=== PATIENT | male | born 1945 | race Caucasian/White ===

== ENCOUNTER → 2018-10-03 | Outpatient (CLI) | payer MEDICARE | END | disposition home or self-care (01) | LOC: RAH 12:24 | PROVIDERS: ATTEND Physical Medicine & Rehabilitation | DX: S33.140A Subluxation of L4/L5 lumbar vertebra, initial encounter (principal); M25.551 Pain in right hip; M25.552 Pain in left hip; X58.XXXA Exposure to other specified factors, initial encounter; Y93.89 Activity, other specified; Y92.89 Other specified places as the place of occurrence of the external cause; Y99.8 Other external cause status | CPT/HCPCS: 72114; 73521 ==

== ENCOUNTER → 2019-01-25 | Outpatient (CLI) | payer MEDICARE | END | disposition home or self-care (01) | LOC: SHCH 07:33 | PROVIDERS: ATTEND Internal Medicine Cardiovascular Disease | DX: R60.9 Edema, unspecified (principal); Z86.718 Personal history of other venous thrombosis and embolism | CPT/HCPCS: 93925 ==

== ENCOUNTER → 2019-01-31 | Outpatient (CLI) | payer MEDICARE | END | disposition home or self-care (01) | LOC: RAH 07:19 | PROVIDERS: ATTEND Physical Medicine & Rehabilitation | DX: M47.26 Other spondylosis with radiculopathy, lumbar region (principal); M51.36 Other intervertebral disc degeneration, lumbar region; N28.1 Cyst of kidney, acquired | CPT/HCPCS: 72148 ==

== ENCOUNTER 2019-04-02 13:00 | Observation (INO) | payer MEDICARE ==
[2019-03-30] MEDS: CEFAZOLIN SODIUM 1 GM VIAL IVP SCH (07:00)
[2019-03-30 09:44] LABS: BASOPHILS % (AUTO) 0.7 % (0.0-5.0); EOSINOPHILS % (AUTO) 1.4 % (0.0-8.0); HEMATOCRIT 45.1 % (42-54); LYMPHOCYTES % (AUTO) 19.3 % (21.0-51.0); MEAN CORPUSCULAR HEMOGLOBIN 32.9 pg (27.0-33.0); MEAN CORPUSCULAR HGB CONC 33.2 g/dL (32.0-36.0); MEAN CORPUSCULAR VOLUME 99.1 fL (79-99); MONOCYTES % (AUTO) 8.4 % (3.0-13.0); NEUTROPHILS % (AUTO) 70.2 % (40.0-77.0); PLATELET COUNT (AUTO) 221 K/uL (130-400); RED BLOOD CELL COUNT(AUTO) 4.55 MIL/uL (4.50-6.20); RED CELL DISTRIBUTION WIDTH 13.8 % (11.0-15.5); WHITE BLOOD COUNT (AUTO) 7.2 K/uL (4.8-10.8)
[2019-03-30 09:45] VITALS: BP 166/98
[2019-03-30 09:54] LABS: POTASSIUM 3.7 mmol/L (3.5-5.1)
[2019-03-31] MEDS: CEFAZOLIN SODIUM 1 GM VIAL IVP SCH (17:15)
[2019-04-01] MEDS: CEFAZOLIN SODIUM 1 GM VIAL IVP SCH (17:15)
[~2019-04-02] VITALS: Ht 185.4 cm; Wt 97.3 kg
[~2019-04-02 13:00] MED LIST: ATOR40TA71 PO; COLESTIPOL PO; HYDR12.530 PO; LISI40TA4 PO; OMEP40CA37 PO; POTASSIUM CITRATE PO; VITA1TAB39 PO
[2019-04-02] MEDS: CEFAZOLIN SODIUM 1 GM VIAL IVP SCH (17:15)
[2019-04-03] VITALS (25 sets, daily range): BP systolic 129–150; BP diastolic 72–113
[2019-04-03] MEDS ORDERED: LACTATED RINGERS 1000ML 1,000 ML IV ONE (06:52)
[2019-04-03] MEDS ORDERED: BUPIVACAINE/EPI/PF 0.25% 30ML VIAL IJ ONE (06:55)
[2019-04-03] MEDS ORDERED: DURAMORPH PF1 MG/ML 10ML AMP IV ONE (06:55)
[2019-04-03] MEDS ORDERED: THROMBIN-JMI 20000 UNIT KIT TP ONE (06:55)
[2019-04-03] MEDS ORDERED: BACITRACIN 50,000 UNIT VIAL ONE (06:55)
[2019-04-03] MEDS ORDERED: SUCCINYLCHOLINE 200MG/10ML SYR ONE ×2 (07:18→07:39)
[2019-04-03] MEDS ORDERED: PROPOFOL 10 MG/ML 20ML VIAL IV ONE (07:18)
[2019-04-03] MEDS ORDERED: LIDOCAINE PF 2% 5ML ABBOJECT ONE ×2 (07:18→07:39)
[2019-04-03] MEDS ORDERED: DEXAMETHASONE SOD PHOSPHATE 10MG/ML 1ML VIAL ONE (07:18)
[2019-04-03] MEDS ORDERED: GLYCOPYRROLATE 1 MG/5 ML SYRINGE ONE (07:18)
[2019-04-03] MEDS ORDERED: FENTANYL CITRATE PF 50 MCG/1 ML 2ML VIAL ONE ×2 (07:19→10:34)
[2019-04-03] MEDS ORDERED: MIDAZOLAM HCL 1 MG/ML 2ML VIAL ONE (07:19)
[2019-04-03] MEDS ORDERED: ROCURONIUM 10MG/1ML SYR 10 MG/ML ML ONE (07:19)
[2019-04-03] MEDS ORDERED: ONDANSETRON HCL 4 MG/2 ML VIAL ONE (07:19)
[2019-04-03] MEDS ORDERED: NEOSTIGMINE 5MG/5ML SYR IV ONE (07:19)
[2019-04-03] MEDS ORDERED: LIDOCAINE HCL 2% JELLY 5 ML ONE (07:38)
[2019-04-03] MEDS ORDERED: ARTIFICIAL TEARS 3.5 GM OINTMENT ONE (07:40)
[2019-04-03] MEDS: CEFAZOLIN SODIUM 1 GM VIAL IVP SCH (08:30)
[2019-04-03] MEDS ORDERED: EPHEDRINE SULFATE 50 MG/ML AMPULE ONE (10:05)
[2019-04-03] MEDS ORDERED: LIDOCAINE HCL 4% LTA SOL 4 ML VIAL ONE (10:47)
[2019-04-03] MEDS ORDERED: LACTATED RINGERS 1000ML 1,000 ML IV SCH (11:06)
[2019-04-03] MEDS ORDERED: MORPHINE SULFATE 2 MG/ML 1ML SYG IVP PRN (11:15)
[2019-04-03] MEDS ORDERED: SODIUM CHLORIDE 0.9% 10 ML VIAL IVP PRN (11:15)
[2019-04-03] MEDS: DEXAMETHASONE SOD PHOSPHATE 4 MG/ML 1ML VIAL IVP SCH ×3 (11:15→23:00)
[2019-04-03] MEDS ORDERED: PROMETHAZINE HCL 25 MG/ML 1ML AMPULE IM PRN (11:15)
[2019-04-03] MEDS ORDERED: CEFAZOLIN SODIUM 1 GM VIAL IVP SCH ×2 (11:15→16:30)
[2019-04-03] MEDS ORDERED: HYDROCODONE/ACETAMINOPHEN 5/325 MG TAB PO PRN (11:15)
[2019-04-03] MEDS ORDERED: MEPERIDINE-PF 25 MG/ML SYG ONE ×2 (11:47→11:59)
[2019-04-03] MEDS: ENOXAPARIN SODIUM 100 MG/1 ML SQ SCH (20:59)
[2019-04-03] MEDS ORDERED: ENOXAPARIN SODIUM 1 MG/KG SQ SCH (21:00)
[2019-04-03] MEDS ORDERED: ATORVASTATIN CALCIUM 40 MG TABLET PO SCH (21:00)
[2019-04-04 03:30] VITALS: BP 123/76
[2019-04-04] MEDS: DEXAMETHASONE SOD PHOSPHATE 4 MG/ML 1ML VIAL IVP SCH (04:46)
--- NOTE | 2019-04-04 05:00 | NUR ---
SINHA CATHETER/ DRESSING SINHA CATHETER REMOVED AT THIS TIME WITH TIP INTACT. PATIENT TOLERATED WELL. VAL DRAIN TO LEFT LOWER BACK ALSO REMOVED WITH TIP INTACT. DRESSING TO LOWER BACK REMOVED. INCISION WELL APPROXIMATED WITH WITH A TOTAL OF 28 ANSELMO INTACT TO TWO INCISIONS. AREA PAINTED WITH BETADINE, COVERED WITH GAUZE AND SECURED WITH HYPAFIX TAPE. PATIENT TOLERATED PROCEDURE WELL. PATIENT IS DUE TO VOID.
[2019-04-04] MEDS ORDERED: PANTOPRAZOLE SODIUM 40 MG TABLET.DR PO SCH (07:30)
[2019-04-04 07:55] VITALS: BP 122/82
[2019-04-04] MEDS: ENOXAPARIN SODIUM 100 MG/1 ML SQ SCH (09:00)
[2019-04-04] MEDS ORDERED: HYDROCHLOROTHIAZIDE 25 MG TABLET PO SCH (09:00)
[2019-04-04] MEDS ORDERED: POTASSIUM CITRATE 1080 MG PO SCH (09:00)
[2019-04-04] MEDS ORDERED: VITAMIN B COMPLEX 1 CAPSULE PO SCH (09:00)
[2019-04-04] MEDS ORDERED: LISINOPRIL 40 MG TABLET PO SCH (09:00)
--- NOTE | 2019-04-04 09:32 | NUR ---
discharge/post void dressing to lower back redressed due to coming up at lower back. incision is dry and intact. discharge teaching done with patient using teachback method, verbalized understanding. no noted sob or distress. iv removed, cath tip intact. incision care teaching done with patietn, verbalized understanding. pending ride fro transfer out of hospital.
--- NOTE | 2019-04-04 12:00 | NUR ---
CM NOTE PT IN OOP STATUS READY TO DC. NO TRIGGERS TO CM, NO CONCERNS VOICED, CM ASSESSMENT DEFERRED Addendum: 04/04/19 at 1756 by ROSALINO LOO RN CM Amended: Links added.
== END 2019-04-04 10:30 | disposition home or self-care (01) ==
LOC: EDSTATUS 13:00 → DAHIP 04-03 05:49 → 4AH 04-03 11:04
PROVIDERS: ADMIT Neurological Surgery; ATTEND Neurological Surgery
DX: M48.061 Spinal stenosis, lumbar region without neurogenic claudication (principal); D17.9 Benign lipomatous neoplasm, unspecified; I82.512 Chronic embolism and thrombosis of left femoral vein; I10 Essential (primary) hypertension; E78.5 Hyperlipidemia, unspecified; Z87.442 Personal history of urinary calculi; Z79.899 Other long term (current) drug therapy
CPT/HCPCS: 21931; 36415; 63047; 63048; 72020; 80048; 85025; 88304; 96372; 96374; 96375; 96376 ×2; A4344; A4510; A4600; A4649 ×4; G0378 ×20; J0330 ×2; J0690 ×2; J1100 ×4; J1650; J2001 ×2; J2175 ×2; J2250; J2274; J2405; J2550; J2704; J2710; J3010 ×2; J3490 ×3; J7030; J7120 ×3

== ENCOUNTER 2020-01-14 18:59 | Inpatient (IN) | payer MEDICARE ==
[~2020-01-14] VITALS: Ht 185.4 cm; Wt 95.2 kg
[~2020-01-14 18:59] MED LIST changes: +OMEP40CA13 PO; -OMEP40CA37 PO
[2020-01-14 19:43] LABS: BASOPHILS % (AUTO) 0.5 % (0.0-5.0); EOSINOPHILS % (AUTO) 2.5 % (0.0-8.0); HEMATOCRIT 42.1 % (42-54); LYMPHOCYTES % (AUTO) 26.6 % (21.0-51.0); MEAN CORPUSCULAR HEMOGLOBIN 32.1 pg (27.0-33.0); MEAN CORPUSCULAR VOLUME 97.2 fL (79-99); MONOCYTES % (AUTO) 7.8 % (3.0-13.0); NEUTROPHILS % (AUTO) 62.4 % (40.0-77.0); PLATELET COUNT (AUTO) 219 K/uL (130-400); RED BLOOD CELL COUNT(AUTO) 4.33 MIL/uL (4.50-6.20); RED CELL DISTRIBUTION WIDTH 13.2 % (11.0-15.5); WHITE BLOOD COUNT (AUTO) 8.2 K/uL (4.8-10.8)
[2020-01-14 20:06] LABS: CREATININE 1.2 mg/dL (0.5-1.5); PARTIAL THROMBOPLASTIN TIME 26.7 SEC (26.3-35.5); POTASSIUM 3.4 mmol/L (3.5-5.1); PROTHROMBIN TIME 10.8 SEC (9.6-11.6)
[2020-01-14 20:12] LABS: B-TYPE NATRIURETIC PEPTIDE 257 pg/mL (0-100)
[2020-01-14 20:19] LABS: ALBUMIN 3.8 g/dL (3.5-5.0); BILIRUBIN,TOTAL 0.4 mg/dL (0.2-1.0); TOTAL PROTEIN, SERUM 6.8 g/dL (6.0-8.3)
[2020-01-14] MEDS ORDERED: DILTIAZEM HCL 5 MG/ML 10 ML VIAL IV ONE (20:23)
[2020-01-14] MEDS ORDERED: DILTIAZEM HCL 125 MG/25 ML VIAL IV ONE (20:23)
[2020-01-14] MEDS ORDERED: DEXTROSE 5%-WATER 100 ML IV ONE (20:25)
[2020-01-14] MEDS ORDERED: ENOXAPARIN SODIUM 100 MG/1 ML SQ ONE (21:03)
[2020-01-14] MEDS ORDERED: MAGNESIUM OXIDE 400 MG TABLET PO ONE (21:03)
[2020-01-14 21:29] LABS: APPEARANCE,URINE Clear (CLEAR); BILIRUBIN,URINE Negative (NEGATIVE); COLOR,URINE Yellow (YELLOW); GLUCOSE, URINE (UA) Negative (NEGATIVE); KETONES,URINE Negative (NEGATIVE); LEUKOCYTE ESTERASE ,URINE Trace (NEGATIVE); NITRATE,URINE Negative (NEGATIVE); OCCULT BLOOD,URINE Moderate (NEGATIVE); PROTEIN,URINE Trace mg/dL (NEGATIVE)
[2020-01-14 21:37] LABS: AMPHET/METH SCREEN,URINE NEGATIVE (NEGATIVE); BARBITURATE SCREEN, URINE NEGATIVE (NEGATIVE); BENZODIAZEPINES SCREEN,URINE NEGATIVE (NEGATIVE); CANNABINOID SCREEN,URINE NEGATIVE (NEGATIVE); COCAINE SCREEN,URINE NEGATIVE (NEGATIVE); OPIATE SCREEN,URINE NEGATIVE (NEGATIVE); PHENCYCLIDINE SCREEN,URINE NEGATIVE (NEGATIVE)
[2020-01-14 21:40] LABS: BACTERIA,URINE Rare /HPF (None Seen); MUCUS,URINE Few LPF (None Seen); SQUAMOUS EPITHELIAL CELL,UR Rare /HPF (0-2)
[2020-01-14] MEDS ORDERED: LIDOCAINE HCL-MPF 1% 2ML VIAL IV PRN (21:45)
[2020-01-14] MEDS ORDERED: ONDANSETRON HCL 4 MG/2 ML VIAL IV PRN (21:45)
[2020-01-14] MEDS ORDERED: MAGNESIUM 2GM PREMIX 50ML 50 ML IV PRN (21:45)
[2020-01-14] MEDS: LACTATED RINGERS 1000ML 1,000 ML IV SCH (21:45)
[2020-01-14] MEDS ORDERED: POTASSIUM CHLORIDE 20MEQ/100ML 100 ML IV PRN (21:45)
[2020-01-14] MEDS ORDERED: HYDRALAZINE HCL 20 MG/ML VIAL IV PRN (21:45)
[2020-01-14] MEDS ORDERED: POTASSIUM BICARB/CIT AC 25 MEQ TABLET.EFF ONE (22:49)
[2020-01-14 23:35] VITALS: BP 105/37
[2020-01-15 04:07] VITALS: BP 100/64
[2020-01-15 06:03] LABS: BASOPHILS % (AUTO) 0.7 % (0.0-5.0); EOSINOPHILS % (AUTO) 2.7 % (0.0-8.0); HEMATOCRIT 43.7 % (42-54); LYMPHOCYTES % (AUTO) 30.1 % (21.0-51.0); MEAN CORPUSCULAR HEMOGLOBIN 31.8 pg (27.0-33.0); MEAN CORPUSCULAR HGB CONC 32.7 g/dL (32.0-36.0); MEAN CORPUSCULAR VOLUME 97.1 fL (79-99); MONOCYTES % (AUTO) 8.7 % (3.0-13.0); NEUTROPHILS % (AUTO) 57.5 % (40.0-77.0); PLATELET COUNT (AUTO) 216 K/uL (130-400); RED CELL DISTRIBUTION WIDTH 13.2 % (11.0-15.5); WHITE BLOOD COUNT (AUTO) 8.6 K/uL (4.8-10.8)
[2020-01-15 06:21] LABS: ALANINE AMINOTRANSFERASE 41 U/L (12-78); ALBUMIN 3.3 g/dL (3.5-5.0); ASPARTATE AMINOTRANSFERASE 28 U/L (10-37); BILIRUBIN,TOTAL 0.7 mg/dL (0.2-1.0); CARBON DIOXIDE 33 mmol/L (21-32); CHLORIDE 106 mmol/L (101-111); CREATININE 1.1 mg/dL (0.5-1.5); GLOMERULAR FILTR. RATE CALC 70 mL/min (>60); GLUCOSE,RANDOM 92 mg/dL (70-105); MYOGLOBIN 127 ng/mL (10-92); POTASSIUM 3.8 mmol/L (3.5-5.1); SODIUM SERUM 143 mmol/L (136-145); TOTAL PROTEIN, SERUM 6.1 g/dL (6.0-8.3); TROPONIN I < 0.04 ng/mL (0.00-0.06); UREA NITROGEN, BLOOD 17 mg/dL (7-18)
[2020-01-15 06:22] LABS: CREATINE KINASE, TOTAL 512 U/L (21-232)
[2020-01-15 07:29] VITALS: BP 119/70
--- NOTE | 2020-01-15 08:00 | NUR ---
STATUS AAOX3 DENIES CP DENIES SOB. NO COMPLAINTS AT THIS TIME. HR VIA TELE SR 60S. CALL LIGHT WITHIN REACH.
[2020-01-15] MEDS ORDERED: APIX5TAB PO (08:13)
[2020-01-15] MEDS ORDERED: OMEP40CA13 PO (08:13)
[2020-01-15] MEDS ORDERED: METO25TA3 PO (08:13)
[2020-01-15] MEDS ORDERED: MELO-108 PO (08:13)
[2020-01-15] MEDS: FAMOTIDINE/PF 20 MG/2 ML VIAL IV SCH ×2 (08:16→20:07)
[2020-01-15] MEDS ORDERED: ENOXAPARIN SODIUM 100 MG/1 ML SQ SCH (09:00)
--- NOTE | 2020-01-15 10:30 | NUR ---
[facility] WOLF SAW PATIENT. CONSULTED DR BARKER. DR BARKER AWARE.
[2020-01-15] MEDS: LACTATED RINGERS 1000ML 1,000 ML IV SCH (11:05)
[2020-01-15 11:22] VITALS: BP 123/86
--- NOTE | 2020-01-15 11:37 | NUR ---
DCP CM met with pt discussed dc plans. Pt is independent prior to admission, lives at home with spouse. Pt denies any equipments/services. Verbalized they have handicapped accessable walkways, spouse has cpap. Feels safe to go back home, still drives, spouse able to assist with transportation and needs as necessary. DC plan to home once stable. CM to cont to follow up. Addendum: 01/15/20 at 1138 by AMANDA TAYLOR LVN CM Amended: Links added.
[2020-01-15 15:31] VITALS: BP 128/85
[2020-01-15 19:39] VITALS: BP 135/92
[2020-01-15] MEDS ORDERED: METOPROLOL SUCCINATE 50 MG TAB.SR.24H PO SCH (21:00)
[2020-01-16] VITALS (9 sets, daily range): BP systolic 108–144; BP diastolic 70–93
[2020-01-16 04:16] LABS: BASOPHILS % (AUTO) 0.5 % (0.0-5.0); HEMATOCRIT 38.8 % (42-54); LYMPHOCYTES % (AUTO) 28.1 % (21.0-51.0); MEAN CORPUSCULAR HEMOGLOBIN 32.4 pg (27.0-33.0); MEAN CORPUSCULAR HGB CONC 33.5 g/dL (32.0-36.0); MEAN CORPUSCULAR VOLUME 96.8 fL (79-99); MONOCYTES % (AUTO) 8.4 % (3.0-13.0); NEUTROPHILS % (AUTO) 60.8 % (40.0-77.0); PLATELET COUNT (AUTO) 214 K/uL (130-400); RED BLOOD CELL COUNT(AUTO) 4.01 MIL/uL (4.50-6.20); RED CELL DISTRIBUTION WIDTH 13.4 % (11.0-15.5); WHITE BLOOD COUNT (AUTO) 8.6 K/uL (4.8-10.8)
[2020-01-16 04:29] LABS: MAGNESIUM 1.7 mg/dL (1.80-2.40); PHOSPHORUS 3.4 mg/dL (2.5-4.9); POTASSIUM 3.6 mmol/L (3.5-5.1)
--- NOTE | 2020-01-16 07:30 | NUR ---
AM ASSESSMENT PT LAYING IN BED, HOB ELEVATED 30 DEGREES, RESTING. A/O X 3. NO SOB. NO DISTRESS NOTED. DENIES CHEST PAIN AND/OR PALPITATIONS. TELE: SR. DENIES N/V AND/OR DIARRHEA. NPO STATUS REINFORCED. PT TO HAVE CARDIAC ABLATION TODAY BY DR BARKER TODAY. UP AD ALYSSA. INSTRUCTED TO CALL FOR ASSISTANCE. CALL ARSH W/IN REACH.
[2020-01-16] MEDS ORDERED: MEPERIDINE-PF 25 MG/ML SYG ONE ×7 (07:46→09:49)
[2020-01-16] MEDS ORDERED: HEPARIN SODIUM 1000UNIT/ML 10ML VIAL ONE (07:46)
[2020-01-16] MEDS ORDERED: MIDAZOLAM HCL 1 MG/ML 2ML VIAL ONE ×7 (07:46→09:49)
[2020-01-16] MEDS ORDERED: LIDOCAINE HCL 2% 20ML ONE (07:46)
--- NOTE | 2020-01-16 07:50 | NUR ---
STATUS PT TAKEN TO PUBLIC ADMINISTRATION TEACHER VIA BED FOR CARDIAC ABLATION. TELE NORMA REMOVED.
[2020-01-16] MEDS ORDERED: ATORVASTATIN CALCIUM 40 MG TABLET PO SCH (09:00)
[2020-01-16] MEDS ORDERED: POTASSIUM CITRATE 1080 MG PO SCH (09:00)
[2020-01-16] MEDS ORDERED: VITAMIN B COMPLEX 1 CAPSULE PO SCH (09:00)
[2020-01-16] MEDS ORDERED: FAMOTIDINE 20MG TAB 20 MG TAB PO SCH (09:00)
[2020-01-16] MEDS ORDERED: APIXABAN 5 MG TABLET PO SCH (17:00)
== END 2020-01-16 15:45 | disposition home or self-care (01) | DRG 273 ==
LOC: EDH 18:59 → EDHIP 21:40 → 4BH 23:17
PROVIDERS: ADMIT Internal Medicine; ATTEND Internal Medicine
PROC: 02583ZZ Destruction of Conduction Mechanism, Percutaneous Approach (ICD-10-PCS; principal; 2020-01-16)
PROC: 02K83ZZ Map Conduction Mechanism, Percutaneous Approach (ICD-10-PCS; 2020-01-16)
PROC: 4A023FZ Measurement of Cardiac Rhythm, Percutaneous Approach (ICD-10-PCS; 2020-01-16)
PROC: 4A0234Z Measurement of Cardiac Electrical Activity, Percutaneous Approach (ICD-10-PCS; 2020-01-16)
DX: I48.92 Unspecified atrial flutter (principal); I50.33 Acute on chronic diastolic (congestive) heart failure; I82.532 Chronic embolism and thrombosis of left popliteal vein; Z79.01 Long term (current) use of anticoagulants; E78.5 Hyperlipidemia, unspecified; F17.200 Nicotine dependence, unspecified, uncomplicated; Z83.3 Family history of diabetes mellitus; Z87.442 Personal history of urinary calculi; Z90.49 Acquired absence of other specified parts of digestive tract; I11.0 Hypertensive heart disease with heart failure
CPT/HCPCS: 36415; 71045; 80048; 80053; 80305; 81001; 82550; 83735; 83874; 83880; 84100; 84443; 84484; 85025; 85378; 85610; 85730; 93005; 93306; 93356; 93613; 93621; 93653; 93971; 99156; 99157; 99291; C1893; C1894; G0378; J1644; J1650; J2175; J2250; J3490; J7060; J7120

== ENCOUNTER 2020-02-12 11:44 | Emergency (ER) | payer MEDICARE ==
[~2020-02-12 11:44] MED LIST changes: +APIX5TAB PO; +MELO-108 PO; +METO25TA3 PO
[2020-02-12 12:09] LABS: BASOPHILS % (AUTO) 0.7 % (0.0-5.0); EOSINOPHILS % (AUTO) 0.8 % (0.0-8.0); HEMATOCRIT 41.3 % (42-54); LYMPHOCYTES % (AUTO) 16.8 % (21.0-51.0); MEAN CORPUSCULAR HEMOGLOBIN 32.9 pg (27.0-33.0); MEAN CORPUSCULAR HGB CONC 33.4 g/dL (32.0-36.0); MEAN CORPUSCULAR VOLUME 98.3 fL (79-99); MONOCYTES % (AUTO) 7.2 % (3.0-13.0); NEUTROPHILS % (AUTO) 74.2 % (40.0-77.0); PLATELET COUNT (AUTO) 225 K/uL (130-400); RED CELL DISTRIBUTION WIDTH 13.2 % (11.0-15.5); WHITE BLOOD COUNT (AUTO) 7.7 K/uL (4.8-10.8)
[2020-02-12 12:22] LABS: CREATININE 1.2 mg/dL (0.5-1.5); POTASSIUM 3.7 mmol/L (3.5-5.1)
[2020-02-12 12:24] LABS: INR 1.02 (0.85-1.15); PARTIAL THROMBOPLASTIN TIME 26.2 SEC (26.3-35.5)
[2020-02-12 12:36] LABS: ALBUMIN 3.8 g/dL (3.5-5.0); BILIRUBIN,TOTAL 0.6 mg/dL (0.2-1.0); TOTAL PROTEIN, SERUM 6.9 g/dL (6.0-8.3)
== END 2020-02-12 14:23 | disposition home or self-care (01) ==
LOC: EDH 11:44
DX: R00.2 Palpitations (principal); I10 Essential (primary) hypertension; Z90.49 Acquired absence of other specified parts of digestive tract; Z98.890 Other specified postprocedural states
CPT/HCPCS: 36415; 71045; 80053; 82550; 84484; 85025; 85610; 85730; 93005

== ENCOUNTER 2020-08-10 19:23 | Emergency (ER) | payer MEDICARE ==
[~2020-08-10 19:23] MED LIST changes: -LISI40TA4 PO; +LISI40TA9 PO; -OMEP40CA13 PO; +OMEP40CA21 PO
[2020-08-10] MEDS ORDERED: 0.9% NACL 500ML IV.SOLN 500 ML IV ONE (19:24)
[2020-08-10 19:57] LABS: BASOPHILS % (AUTO) 0.5 % (0.0-5.0); HEMATOCRIT 37.9 % (42-54); LYMPHOCYTES % (AUTO) 13.3 % (21.0-51.0); MEAN CORPUSCULAR HEMOGLOBIN 33.4 pg (27.0-33.0); MEAN CORPUSCULAR VOLUME 98.2 fL (79-99); MONOCYTES % (AUTO) 6.8 % (3.0-13.0); NEUTROPHILS % (AUTO) 78.1 % (40.0-77.0); PLATELET COUNT (AUTO) 236 K/uL (130-400); RED BLOOD CELL COUNT(AUTO) 3.86 MIL/uL (4.50-6.20); RED CELL DISTRIBUTION WIDTH 13.2 % (11.0-15.5); WHITE BLOOD COUNT (AUTO) 9.9 K/uL (4.8-10.8)
[2020-08-10 20:06] LABS: CREATININE 1.2 mg/dL (0.5-1.5); POTASSIUM 3.3 mmol/L (3.5-5.1)
[2020-08-10 20:09] LABS: INR 1.03 (0.85-1.15)
[2020-08-10 20:11] LABS: ALBUMIN 3.2 g/dL (3.5-5.0); BILIRUBIN,TOTAL 0.3 mg/dL (0.2-1.0); PARTIAL THROMBOPLASTIN TIME 24.8 SEC (26.3-35.5); TOTAL PROTEIN, SERUM 6.1 g/dL (6.0-8.3)
[2020-08-10] MEDS ORDERED: FENTANYL CITRATE PF 50 MCG/1 ML 2ML VIAL ONE (21:41)
[2020-08-10] MEDS ORDERED: ORPHENADRINE CITRATE 30 MG/ML ML ONE (21:41)
[2020-08-10] MEDS ORDERED: KCL 20 MEQ ERTAB PO ONE (22:25)
[2020-08-10 22:49] LABS: APPEARANCE,URINE Clear (CLEAR); BILIRUBIN,URINE Negative (NEGATIVE); COLOR,URINE Yellow (YELLOW); GLUCOSE, URINE (UA) Negative (NEGATIVE); KETONES,URINE Negative (NEGATIVE); LEUKOCYTE ESTERASE ,URINE Trace (NEGATIVE); NITRATE,URINE Negative (NEGATIVE); OCCULT BLOOD,URINE Negative (NEGATIVE); PH,URINE 5.5 (5.0-8.0); PROTEIN,URINE Negative (NEGATIVE)
[2020-08-10] MEDS ORDERED: MAGNESIUM OXIDE 400 MG TABLET PO ONE (22:56)
[2020-08-10] MEDS ORDERED: IOHEXOL-350 75 ML VIAL IV ONE (23:16)
[2020-08-10 23:21] LABS: BACTERIA,URINE None Seen /HPF (None Seen); RBC,URINE None Seen /HPF (0-1); WBC,URINE None Seen /HPF (0-1)
== END 2020-08-11 01:27 | disposition home or self-care (01) ==
LOC: EDH 19:23
DX: E87.6 Hypokalemia (principal); E83.42 Hypomagnesemia; M79.605 Pain in left leg; Z20.828 Contact with and (suspected) exposure to other viral communicable diseases; I10 Essential (primary) hypertension; Z90.49 Acquired absence of other specified parts of digestive tract; Z86.718 Personal history of other venous thrombosis and embolism
CPT/HCPCS: 36415; 71275; 80053; 81001; 82550; 83735; 83880; 84484; 85025; 85378; 85610; 85730; 87426; 93005; 93926; 93971; 96374; 96375; 99285; J2360; J3010; J7040; Q9967; U0003

== ENCOUNTER → 2021-10-21 | Outpatient (CLI) | payer MEDICARE | END | disposition home or self-care (01) | LOC: RAH 13:27 | PROVIDERS: ATTEND Physical Medicine & Rehabilitation | DX: M48.061 Spinal stenosis, lumbar region without neurogenic claudication (principal); M47.816 Spondylosis without myelopathy or radiculopathy, lumbar region; M43.5X6 Other recurrent vertebral dislocation, lumbar region; Z98.1 Arthrodesis status; Z88.1 Allergy status to other antibiotic agents | CPT/HCPCS: 72148 ==

== ENCOUNTER → 2023-04-20 | Outpatient (CLI) | payer MEDICARE ==
[2023-04-20 13:16] LABS: CREATININE 1.1 mg/dL (0.5-1.5)
== END | disposition home or self-care (01) ==
LOC: LAB 12:20
PROVIDERS: ATTEND Physical Medicine & Rehabilitation
DX: M54.16 Radiculopathy, lumbar region (principal)
CPT/HCPCS: 36415; 82565; 84520

== ENCOUNTER → 2023-04-22 | Outpatient (CLI) | payer MEDICARE ==
[~2023-04-22] MED LIST changes: +GADOTERATE MEGLUMINE 10 MMOL/20 ML VIAL IV ONE
== END | disposition home or self-care (01) ==
LOC: RAH 08:22
PROVIDERS: ATTEND Physical Medicine & Rehabilitation
DX: M48.061 Spinal stenosis, lumbar region without neurogenic claudication (principal)
CPT/HCPCS: 72158; A9575

== ENCOUNTER → 2023-07-14 | Outpatient (CLI) | payer MEDICARE ==
[~2023-07-14] MED LIST changes: -GADOTERATE MEGLUMINE 10 MMOL/20 ML VIAL IV ONE
== END | disposition home or self-care (01) ==
LOC: LAB 08:45
PROVIDERS: ATTEND Internal Medicine
DX: M51.14 Intervertebral disc disorders with radiculopathy, thoracic region (principal)
CPT/HCPCS: 36415; 85651; 86140

== ENCOUNTER → 2024-11-26 | Outpatient (CLI) | payer MEDICARE ==
--- NOTE | 2024-11-26 13:19 | HMCIMG ---
Exam Type: abdomen supine tomograms and abdomen series Tomogram planes done at 9, 10, 11, 12, 13, 14, and 15 cm. Clinical Information: CALCULUS OF KIDNEY Comparison: None. Findings: Bilateral nephrolithiasis is seen. Largest calculus on the left side is noted within the lower pole, 12 mm. There is a smaller cluster of upper pole calculus on the left side, the largest calculus on the right side is a 12 mm upper pole calculus. The limited visualization of the rest of the abdomen structures is unremarkable. IMPRESSION: Bilateral nephrolithiasis.
== END | disposition home or self-care (01) ==
LOC: RAH 11:34
PROVIDERS: ATTEND Urology
DX: N20.0 Calculus of kidney (principal)
CPT/HCPCS: 74018; 76100

== ENCOUNTER → 2025-05-03 | Outpatient (CLI) | payer MEDICARE ==
[~2025-05-03] MED LIST changes: +LISI40TA15 PO; -LISI40TA9 PO
--- NOTE | 2025-05-03 13:47 | HMCIMG ---
Bilateral hip x-rays with pelvis, 3 films. CLINICAL INDICATION: Pain following trauma. FINDINGS: Bony mineralization satisfactory. There is no evidence of fracture or dislocation. Joint space intervals are preserved and the sacroiliac joints are intact. No destructive lesions are seen. There is mild osteopenia Surrounding soft tissues are within normal limits.. There is surgical clips seen in the scrotal sac suggesting of prior vasectomy IMPRESSION: No evidence of pelvic or hip fracture. Osteopenia
--- NOTE | 2025-05-03 16:13 | HMCIMG ---
LUMBAR SPINE RADIOGRAPHS -4 VIEWS with flexion and extension INDICATION: Back pain COMPARISON: None FINDINGS: AP, lateral, with flexion and extension and neutral views. There is mild dextroscoliosis.. Five nonrib-bearing lumbar vertebral bodies are noted. No acute fracture or subluxation identified. Vertebral body heights are well-maintained. There are ventral marginal spurs mostly seen in the lower thoracic upper lumbar spine. Disc spaces are well-preserved. There is grade 1 anterolisthesis of L4 over L5 which does not change with flexion and extension radiograph. There is osteopenia of the osseous structure.. IMPRESSION: No fracture Grade 1 anterolisthesis of L4 over L5 without pars defect Mild dextroscoliosis Osteopenia Marginal spurs mostly in the lower thoracic upper lumbar spine.
== END | disposition home or self-care (01) ==
LOC: RAH 09:05
PROVIDERS: ATTEND Physical Medicine & Rehabilitation
DX: M43.16 Spondylolisthesis, lumbar region (principal); M41.86 Other forms of scoliosis, lumbar region; M85.89 Other specified disorders of bone density and structure, multiple sites; M46.05 Spinal enthesopathy, thoracolumbar region; Z91.81 History of falling; Z98.890 Other specified postprocedural states
CPT/HCPCS: 72114; 73521